=== PATIENT | female | born 1995 | race Caucasian/White ===

== ENCOUNTER 2022-05-09 16:55 | Outpatient (REF) | payer OTHER, SELFPAY ==
--- NOTE | ~2022-05-09 | XR_ITS ---
EXAMINATION: XR CERVICAL SPINE CLINICAL INFORMATION: Cervicalgia. COMPARISON: None TECHNIQUE: 3 views of the cervical spine were obtained. FINDINGS: Mild reversal of the cervical lordosis at the level of C4-C5. No acute compression deformity. The atlantoaxial and atlantooccipital articulations are maintained. No significant disc height loss nor uncovertebral hypertrophy. No prevertebral soft tissue thickening. Included portions of the lung apices are clear. XR/XR cervical spine 3V IMPRESSION: 1. Nonspecific mild reversal of the cervical lordosis which could be positional or due to muscle spasm. If clinically deemed appropriate, for evaluation of ligamentous injuries, correlation with an MR of the cervical spine could be obtained. 2. No acute compression deformities.
--- NOTE | ~2022-05-09 | XR_ITS ---
EXAMINATION: XR CHEST CLINICAL INFORMATION: Chest pain. COMPARISON: None TECHNIQUE: 2 views of the chest were obtained. FINDINGS: No significant abnormality is noted involving the heart, lungs, mediastinum, bony thorax or soft tissues. XR/XR chest 2V IMPRESSION: Unremarkable examination.
== END 2022-05-09 16:56 | disposition home or self-care (01) ==
LOC: HO.HMGCX 16:55
PROVIDERS: Visit Provider Nurse Practitioner Family
DX: R07.89 Other chest pain (principal); M54.2 Cervicalgia
CPT/HCPCS: 71046; 72040